=== PATIENT | male | born 1945 | race Caucasian/White ===

== ENCOUNTER 2018-09-14 06:15 | Inpatient (IN) | payer OTHER ==
[~2018-09-14 06:15] MED LIST: ADULT ASPIRIN81 MG PO; ATENOLOL25 MG PO; AVAPRO300 MG PO; NORVASC5 MG PO
[2018-09-18] MEDS ORDERED: PROTONIX20 MG PO (13:36)
[2018-09-18] MEDS ORDERED: AMOX1TAB5 PO (13:36)
== END 2018-09-18 14:33 | disposition home or self-care (01) | DRG 415 ==
LOC: CIR.AMB 06:15 → O/R 13:08 → SURH 13:08 → CIR.AMB 17:11 → SURH 09-18 14:33
PROVIDERS: ADMIT Surgery
PROC: 0FJ44ZZ Inspection of Gallbladder, Percutaneous Endoscopic Approach (ICD-10-PCS; 2018-09-14)
PROC: BF13YZZ Fluoroscopy of Gallbladder and Bile Ducts using Other Contrast (ICD-10-PCS; 2018-09-14)
PROC: 0FT40ZZ Resection of Gallbladder, Open Approach (ICD-10-PCS; principal; 2018-09-14 10:00)
PROC: 30233N1 Transfusion of Nonautologous Red Blood Cells into Peripheral Vein, Percutaneous Approach (ICD-10-PCS; 2018-09-15)
DX: K80.10 Calculus of gallbladder with chronic cholecystitis without obstruction (principal); D62 Acute posthemorrhagic anemia; K66.0 Peritoneal adhesions (postprocedural) (postinfection); G47.09 Other insomnia; Z90.49 Acquired absence of other specified parts of digestive tract